=== PATIENT | female | born 1955 | race Caucasian/White ===

== ENCOUNTER 2020-08-07 23:47 | Emergency (ER) | payer SELFPAY ==
--- NOTE | 2020-08-08 00:05 | ED.PDOC ---
History of Present Illness - General Time Seen by Provider: 08/07/20 23:50 Source: patient, RN notes reviewed, Vital Signs reviewed Additional Information: Presents to the ER because of her blood pressure keeps dropping, patient said that symptoms began Wednesday she also has some excruciating abdominal pain that was negative then obtained on Wednesday the pain in her abdomen has gotten better, but she feels like her blood pressure is still dropping patient denies any chest pain denies any shortness of breath no dysuria. Patient stated that about a year ago she did have some episodes of low blood pressure, they checked her and told her that everything was normal, patient does take lisinopril for blood pressure and at the moment has no other complaint patient is a smoker - History of Present Illness Timing/Duration: 1 week Severity: moderate Improving Factors: nothing Worsening Factors: nothing Associated Symptoms: other - abdominal pain Allergies/Adverse Reactions: Allergies Penicillins Allergy (Verified 08/08/20 00:06) Home Medications: Ambulatory Orders Albuterol Inhaler [Ventolin Hfa Inhaler] 108 mcg IN Q6HR PRN #1 inh 11/12/14 Budesonide-Formoterol Fumarate [Symbicort] 2 aer IN BID #1 aer 11/12/14 Amoxicillin & Pot Clavulanate [Augmentin Tab] 875 mg PO BID #14 tab 08/08/20 Chlorthalidone 25 mg PO DAILY 08/08/20 Famotidine [Pepcid Tab] 20 mg PO BID #20 tab 08/08/20 Lisinopril 40 mg PO DAILY 08/08/20 Ondansetron Odt [Zofran ODT] 4 mg PO Q6HR #20 tab 08/08/20 metroNIDAZOLE [Flagyl] 500 mg PO Q8H #14 tab 08/08/20 Review of Systems - Review of Systems Constitutional: States: no symptoms reported EENTM: States: no symptoms reported Respiratory: States: no symptoms reported Cardiology: States: no symptoms reported Gastrointestinal/Abdominal: States: abdominal pain Genitourinary: States: no symptoms reported Skin: States: no symptoms reported Neurological: States: no symptoms reported Endocrine: States: no symptoms reported Hematologic/Lymphatic: States: no symptoms reported Past Medical History (General) - Patient Medical History Hx Seizures: No Hx Stroke: No Hx Asthma: No Hx of COPD: No Hx Cardiac Disorders: No Hx Congestive Heart Failure: No Hx Pacemaker: No Hx Hypertension: No Hx Diabetes: No Hx MRSA: No - Social History Hx Alcohol Use: No Hx Substance Use: No Hx Physical Abuse: No Hx Emotional Abuse: No Family Medical History - Family History Mother Living Status: Age at (years of age): 85 Cause of : cardiac disease Father Living Status: Still Living Age at (years of age): 91 Hx Family Cancer: Yes - colon Physical Exam - Physical Exam General Appearance: Well Developed, Well Groomed, Well Hydrated, Well Nourished Eye Exam: bilateral normal Ears, Nose, Throat: hearing grossly normal, normal ENT inspection, normal pharynx Neck: non-tender, full range of motion, supple, normal inspection Respiratory: chest non-tender, lungs clear, normal breath sounds, no respiratory distress, no accessory muscle use Cardiovascular/Chest: normal peripheral pulses, regular rate, rhythm, no edema, no gallop, no JVD, no murmur Peripheral Pulses: radial,right: 2+, radial,left: 2+ Gastrointestinal/Abdominal: other - epigastric painb, no rebound, no guarding and no distention, no acute abdomen Back Exam: normal inspection, no CVA tenderness, no vertebral tenderness Extremity: normal range of motion, non-tender, normal inspection, no pedal edema, no calf tenderness, normal capillary refill 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 Leukocytosis normal white blood cell count, no evidence of renal failure no metabolic acidosis no urinary tract infection but abdominal pelvic CT did show evidence of uncomplicated diverticulitis. Which can explain patient's pain abdominal pain, patient blood pressure dropped while she was having some pain here but then went back to normal I ordered a liter of normal saline. And I discussed with the daughter that patient needs to be seen by electronic engraver diverticulitis and primary care physician for blood pressure optimization. The ER immediately for any severe fever nausea vomiting abdominal pain back pain diarrhea bloody stools unwanted weight of decreased oral intake unable to monitor fluids down or any other concern 08/08/20 01:11 08/08/20 01:14 uncomplicated diverticulitis without evidence of abscess perforations or any other serious complication,paitent received a dose IV Rocephin and Flagyl Departure - Departure Clinical Impression: Diverticulitis Disposition: Discharge to Home or Self Care Condition: Fair Instructions: Diverticulitis (DC) Diet: full liquid diet Referrals: Fred Vo MD [Primary Care Provider] - 1-2 Weeks Prescriptions: Ondansetron Odt [Zofran ODT] 4 mg PO Q6HR #20 tab Amoxicillin & Pot Clavulanate [Augmentin Tab] 875 mg PO BID #14 tab metroNIDAZOLE [Flagyl] 500 mg PO Q8H #14 tab Famotidine [Pepcid Tab] 20 mg PO BID #20 tab Home Medications: Ambulatory Orders Albuterol Inhaler [Ventolin Hfa Inhaler] 108 mcg IN Q6HR PRN #1 inh 11/12/14 Budesonide-Formoterol Fumarate [Symbicort] 2 aer IN BID #1 aer 11/12/14 Amoxicillin & Pot Clavulanate [Augmentin Tab] 875 mg PO BID #14 tab 08/08/20 Chlorthalidone 25 mg PO DAILY 08/08/20 Famotidine [Pepcid Tab] 20 mg PO BID #20 tab 08/08/20 Lisinopril 40 mg PO DAILY 08/08/20 Ondansetron Odt [Zofran ODT] 4 mg PO Q6HR #20 tab 08/08/20 metroNIDAZOLE [Flagyl] 500 mg PO Q8H #14 tab 08/08/20 Additional Instructions: Return To the ER immediately severe nausea vomiting abdominal pain right lower quadrant pain diarrhea bloody stools unwanted weight loss decreased oral intake unable to morning fluids down blood in the urine peripheral urination or any other concern
--- NOTE | 2020-08-08 00:32 | RAD ---
EXAM DESCRIPTION: Chest,1 View CLINICAL HISTORY: 64 years Female weakness COMPARISON: None. FINDINGS: The study is suboptimal from patient body habitus. The cardiac silhouette appears upper normal. Atherosclerotic calcifications in the thoracic aorta. The lung bases are suboptimally evaluated from overlying soft tissues. No gross infiltrate or effusion. No pneumothorax. IMPRESSION: The lung bases are suboptimally evaluated from overlying soft tissues. No gross infiltrate or effusion. PA and lateral chest x-ray could be obtained to better evaluate if indicated. Electronically signed by: Efren Collins MD 08/08/2020 12:30 AM CDT
[2020-08-08] MEDS ORDERED: SODIUM CHLORIDE 0.9% 1000ML 1,000 ML IVS ONE (01:00)
[2020-08-08] MEDS ORDERED: SODIUM CHLORIDE 0.9% 1000ML 1,000 ML ONE (01:01)
--- NOTE | 2020-08-08 01:01 | CT ---
EXAM DESCRIPTION: Abdomen/Pelvis w/Contrast CLINICAL HISTORY: 64 years Female Abdominal pain COMPARISON: None TECHNIQUE: Multiple contiguous axial CT slices were taken from the diaphragms to the pubic symphysis after intravenous administration of Iodinated contrast. This exam was performed according to our departmental dose-optimization program, which includes automated exposure control, adjustment of the mA and/or kV according to patient size and/or use of iterative reconstruction technique. FINDINGS: The lung bases are clear. Small pericardial effusion. No focal hepatic lesions. Cholelithiasis. The bile ducts, pancreas, spleen and adrenals are normal. The kidneys, ureters and bladder are normal. The uterus is normal. No adnexal masses. The small bowel is normal. The appendix is normal. There is scattered colonic diverticulosis. There is there is pericolonic fat stranding adjacent to the splenic flexure. No pericolonic gas or fluid collection No ascites, pneumatosis or pneumoperitoneum. No lymphadenopathy. The aorta and IVC are normal. There are no abdominal wall hernia defects. No destructive osseous lesions. IMPRESSION: 1. Colonic diverticulosis. Pericolonic fat stranding adjacent to the splenic flexure likely due to underlying mild acute uncomplicated diverticulitis. 2. Cholelithiasis. 3. Incidental small pericardial effusion. Electronically signed by: Wilbert Vides MD 08/08/2020 12:59 AM CDT
[2020-08-08] MEDS ORDERED: metroNIDAZOLE IV PREMIX 500MG 500 MG in PREMIX BAG 1 BAG IVPB ONE (01:10)
[2020-08-08] MEDS ORDERED: cefTRIAXone SODIUM 1 GM in SODIUM CHL 0.9% 50ML MIN-BAG+ 50 ML IVPB ONE (01:10)
[2020-08-08] MEDS ORDERED: HYDROcodone 10MG/APAP 325MG 1 EA TAB PO ONE (01:21)
[2020-08-08 02:56] VITALS: TEMP 97
[2020-08-08 02:57] VITALS: BP 111/53; O2SAT 93
== END 2020-08-08 02:57 | disposition home or self-care (01) ==
LOC: ER 23:47
DX: K57.32 Diverticulitis of large intestine without perforation or abscess without bleeding (principal); I10 Essential (primary) hypertension; F17.200 Nicotine dependence, unspecified, uncomplicated; Z79.899 Other long term (current) drug therapy; Z88.1 Allergy status to other antibiotic agents
CPT/HCPCS: 71045; 74177; 80053; 81001; 84484; 85025; 93005; J0696; J3490; J7030; J7050